=== PATIENT | female | born 1995 | race American Indian/Alaskan Native ===

== ENCOUNTER 2021-01-25 06:42 | Inpatient (IN) | payer MEDICAID ==
[2021-01-25] MEDS ORDERED: Lactated Ringers 1,000 ML IV ONE (07:59)
[2021-01-25] MEDS ORDERED: Lidocaine 1% 30 ML SDV INJECT PRN (07:59)
[2021-01-25] MEDS ORDERED: Misoprostol 400 MCG (4 X 100 MCG TAB) RECTAL PRN (07:59)
[2021-01-25] MEDS ORDERED: Ondansetron 4 MG/2 ML SDV IVPUSH PRN (07:59)
[2021-01-25] MEDS ORDERED: Methylergonovine 0.2 MG/1 ML Amp IM PRN (07:59)
[2021-01-25] MEDS ORDERED: Carboprost Tromethamine 250 MCG/1 ML Amp IM PRN (07:59)
[2021-01-25] MEDS ORDERED: Sodium Chloride 0.9% 10 ML Syringe FLUSH PRN (07:59)
[2021-01-25] MEDS ORDERED: Tranexamic Acid 1,000 MG in Sodium Chloride 0.9% 100 ML IV PRN (07:59)
[2021-01-25] MEDS ORDERED: Oxytocin/Normal Saline 30 UNIT/500 ML BAG IV SCH (08:00)
[2021-01-25] MEDS ORDERED: Nalbuphine 10 MG/1 ML Vial IM ONE (08:02)
[2021-01-25] MEDS: Oxytocin/Normal Saline 30 UNIT/500 ML BAG IV SCH ×2 (08:57→16:52)
[2021-01-25] MEDS: Lactated Ringers 1,000 ML IV SCH ×2 (08:57→10:36)
[2021-01-25] MEDS ORDERED: fentaNYL 100 MCG/2 ML SDV ONE (10:38)
[2021-01-25] MEDS ORDERED: Sodium Bicarbonate 4.2% 2.5 MEQ/5 ML SDV ONE ×2 (10:39→10:40)
[2021-01-25] MEDS ORDERED: fentaNYL 100 MCG/2 ML SDV ITHECAL ONE (10:40)
[2021-01-25] MEDS ORDERED: Sodium Chloride 0.9% 20 ML SDV ONE (10:40)
[2021-01-25] MEDS ORDERED: Phytonadione 1 MG/0.5 ML Syringe IM ONE (11:36)
[2021-01-25] MEDS ORDERED: Erythromycin Base 0.5% Ophth Oint 1 GM Tube EYEBOTH ONE (11:36)
[2021-01-25] MEDS ORDERED: Hepatitis B Virus Vaccine PF (Pediatric) 10 MCG/0.5 ML Syringe IM ONE (11:36)
--- NOTE | 2021-01-25 11:36 | PCM.DEL ---
Vacuum Extractor Progress Note - Alternative Labor Strategies Considered Alternative Labor Strategies Considered:: Reports: Yes Strategies Considered:: Reports: Contraction Intensity Adequate, Position Changes Used to Facilitate Rotation & Descent, Empty Bladder, Rest Indications Considered:: Reports: Yes Indications:: Reports: Suspicion of Immediate or Potential Compromise Time Out:: Reports: Yes - Patient Prepared Patient Prepared:: Reports: Yes Informed Consent:: Reports: Verbal Risks: Reports: Yes Risks Include:: Reports: Laceration, Shoulder Dystocia, Maternal Injury, Other ( harm) Anesthesia/Analgesia Adequate:: Reports: Yes - Probability of Success High Probability of Success:: Reports: Yes Weight Estimated:: Reports: AGA Patient Diabetic:: Reports: No Pelvis Adequate:: Reports: Yes Position:: DAMION Asynclitic:: Reports: No Station:: VTX SEEN SPLITTING LABIA - Application Time Maximum Application Time & Number of Pop-Offs Predetermined:: Reports: Yes Number of Times Cup Disengaged:: 0 (USED FOR 1 CONTRACTION WITH DELIVERY -SEE NURSES NOTES AND DELIVERY NOTE FOR DETAILS ON TIME,ETC) Type of Vacuum Used:: Reports: Cup: Soft (KIWI VACUUM WITH SMALL CUP) Vacuum Extraction: Successful - Exit Strategy Exit strategy available:: Reports: Yes and resuscitation teams readily available:: Reports: Yes - General Info Date of Service: 01/25/21 - Patient Data Vitals - Most Recent: Last Vital Signs Temp 97.5 F 01/25/21 07:13 Pulse 78 01/25/21 07:13 Resp 18 01/25/21 07:13 BP 122/72 01/25/21 07:13 Pulse Ox Weight - Most Recent: 68.039 kg Lab Results Last 24 Hours: Laboratory Results - last 24 hr 01/25/21 01/25/21 Range/Units 07:05 08:18 WBC 12.0 H (5.0-10.0) 10^3/uL RBC 3.92 L (4.2-5.4) 10^6/uL Hgb 13.3 (12.0-16.0) g/dL Hct 38.9 (37.0-47.0) % MCV 99.2 (80-100) fL MCH 33.9 (27.0-34.0) pg MCHC 34.2 (33.0-35.0) g/dL Plt Count 173 (150-450) 10^3/uL SARS-CoV-2 RNA (MAGGY) Negative (NEGATIVE) Med Orders - Current: Current Medications Acetaminophen (Acetaminophen 325 Mg Tab) 650 mg PO Q4H PRN PRN Reason: Pain (Mild 1-3) and fever Carboprost Tromethamine (Carboprost Tromethamine 250 Mcg/1 Ml Amp) 250 mcg IM ASDIRECTED PRN PRN Reason: HEMORRHAGE Lactated Ringer's (Ringers, Lactated) 1,000 mls @ 125 mls/hr IV ASDIRECTED MARYJANE Last Admin: 01/25/21 10:36 Dose: 125 mls/hr Documented by: Tranexamic Acid 1,000 mg/ (Sodium Chloride) 110 mls @ 660 mls/hr IV ONETIME PRN PRN Reason: Bleeding Oxytocin/Sodium Chloride (Pitocin In Ns 30 Unit/500 Ml) 30 unit in 500 mls @ 2 mls/hr IV TITRATE MARYJANE; Protocol Last Titration: 01/25/21 09:40 Dose: 4 munits/min, 4 mls/hr Documented by: Oxytocin/Sodium Chloride (Pitocin In Ns 30 Unit/500 Ml) 30 unit in 500 mls @ 2 mls/hr IV TITRATE MARYJANE; Protocol Lidocaine HCl (Lidocaine 1% 30 Ml Sdv) 30 ml INJECT ASDIRECTED PRN PRN Reason: Perineal Repair Methylergonovine Maleate (Methylergonovine 0.2 Mg/1 Ml Amp) 0.2 mg IM ASDIRECTED PRN PRN Reason: Hemorrhage Misoprostol (Misoprostol 400 Mcg (4 X 100 Mcg Tab)) 800 mcg RECTAL ASDIRECTED PRN PRN Reason: Hemorrhage Last Admin: 01/25/21 11:19 Dose: 800 mcg Documented by: Ondansetron HCl (Ondansetron 4 Mg/2 Ml Sdv) 4 mg IVPUSH Q4H PRN PRN Reason: Nausea/Vomiting Last Admin: 01/25/21 10:35 Dose: 4 mg Documented by: Sodium Chloride (Sodium Chloride 0.9% 10 Ml Syringe) 10 ml FLUSH ASDIRECTED PRN PRN Reason: Keep Vein Open Discontinued Medications Fentanyl (Fentanyl 100 Mcg/2 Ml Sdv) Confirm Administered Dose 100 mcg .ROUTE .STK-MED ONE Stop: 01/25/21 10:39 Lactated Ringer's (Ringers, Lactated) 1,000 mls @ 500 mls/hr IV BOLUS ONE Stop: 01/25/21 09:58 Nalbuphine HCl (Nalbuphine 10 Mg/1 Ml Vial) 20 mg IM ONETIME ONE Stop: 01/25/21 08:03 Sodium Bicarbonate (Sodium Bicarbonate 4.2% 2.5 Meq/5 Ml Sdv) Confirm Administered Dose 2.5 meq .ROUTE .STK-MED ONE Stop: 01/25/21 10:40 Sufentanil Citrate (Sufentanil 50 Mcg/1 Ml Amp) Confirm Administered Dose 50 mcg .ROUTE .STK-MED ONE Stop: 01/25/21 10:40 - Problem List Review Problem List Initiated/Reviewed/Updated: Yes - My Orders Last 24 Hours: My Active Orders 01/25/21 Breakfast Clear Liquid Diet [DIET] 01/25/21 07:59 Acetaminophen [TylenoL] 650 mg PO Q4H PRN Carboprost Tromethamine [Hemabate DS] 250 mcg IM ASDIRECTED PRN Lidocaine 1% [Xylocaine-MPF 1%] 30 ml INJECT ASDIRECTED PRN Methylergonovine [Methergine] 0.2 mg IM ASDIRECTED PRN Ondansetron [Zofran] 4 mg IVPUSH Q4H PRN Sodium Chloride 0.9% [Saline Flush] 10 ml FLUSH ASDIRECTED PRN Tranexamic Acid [Cyklokapron] 1,000 mg Sodium Chloride 0.9% [Normal Saline] 100 ml IV ONETIME miSOPROStoL [Cytotec] 800 mcg RECTAL ASDIRECTED PRN Resuscitation Status Routine 01/25/21 08:00 Patient Status [ADT] Routine Communication Order [RC] ASDIRECTED Heart Tones [RC] PER UNIT ROUTINE Notify Provider Vital Signs OB [RC] ASDIRECTED Notify Provider [RC] PRN Pump Management, Intrathecal [RC] ASDIRECTED Up ad Cait [RC] ASDIRECTED Vital Signs [RC] PER UNIT ROUTINE Lactated Ringers [Ringers, Lactated] 1,000 ml IV ASDIRECTED Oxytocin/Normal Saline [Pitocin in NS 30 UNIT/500 ML] 30 unit in 500 ml IV TITRATE Oxytocin/Normal Saline [Pitocin in NS 30 UNIT/500 ML] 30 unit in 500 ml IV TITRATE Saline Lock Insert [OM.PC] Routine
[2021-01-25] MEDS ORDERED: Zolpidem 5 MG Tab PO PRN (11:39)
[2021-01-25] MEDS ORDERED: Benzocaine/Menthol 20%-0.5% Spray 78 GM Cannister TOP PRN (11:39)
[2021-01-25] MEDS ORDERED: Simethicone 80 MG Tab.Chew PO PRN (11:39)
[2021-01-25] MEDS ORDERED: Oxytocin 10 Units/1 ML SDV IM PRN (11:39)
--- NOTE | 2021-01-25 11:40 | OBOUT ---
DATE: 01/25/2021 TIME: 7:01 to 7:21. REASON FOR NST: 1. Intrauterine at 39-6/7 weeks confirmed with 12-1/7 week ultrasound. 2. Contractions with cervical change. 3. GBS negative. 4. History of cardiac echogenic focus. No further workup done. Seen Maternal Medicine. 5. . NST INTERPRETATION: During this time period, heart tone baseline was approximately 130 and at least two 15 x 15 beats per minute accelerations making this strip reactive as well as reassuring. Tocometer reveals potential 3 to 4 contractions felt by the patient. Blood pressure 122/72, heart rate 78, temperature 97.5. ASSESSMENT: 1. Nonstress test, reactive and reassuring. 2. Tocometer with contractions. PLAN: The patient was evaluated shortly thereafter. She was found to be 3 cm with contractions with cervical change, suspected labor. The patient was admitted. Pitocin augmentation was started after that and the patient will be followed clinically and closely. H and P was done through [facility] and updated to reflect the findings. Review of systems was reviewed and felt to be contributory for contractions. Started at 3 a.m. on date of admission. Increasing in frequency and intensity to the point that she was breathing through them, felt in the lower abdomen, coming every 5 to 10 minutes, and worsening over time. No spotting, bleeding, or leaking noted. Otherwise, please see H and P done through [facility]. [facility] /[id number]
[2021-01-25] MEDS ORDERED: Witch Hazel Medicated Pads 100/Jar TOP PRN (16:50)
[2021-01-25] MEDS: Ibuprofen 800 MG Tab PO PRN (17:05)
--- NOTE | 2021-01-25 19:50 | PN ---
DATE: 01/25/2021 SUBJECTIVE: The patient is breathing through her contractions. OBJECTIVE: heart tones in the 120s, reactive. Tocometer reveals contractions every 2 to 4 to 5 minutes apart. Vaginal exam reveals her to be 6 to 7 cm, 100% effaced, 0 to +1 station, vertex suspected. Last blood pressure 139/79, heart rate 61. ASSESSMENT AND PLAN: Intrauterine , 39-6/7 weeks, confirmed with 12- 1/7 week ultrasound. Admitted in active labor with contractions and cervical change. Pitocin augmentation has been started. She is group B Streptococcus negative in a with history of cardiac and cardiac echogenic focus. Seen Maternal Medicine. No further workup warranted and we will follow after delivery. At this point in time, the patient is requesting something for pain. Intrathecal will be given at her request and we will proceed as soon as C[employer] SERVICE [employer]OCIATE is ready and available. [facility] /[id number]
[2021-01-26] MEDS: Ibuprofen 800 MG Tab PO PRN ×3 (02:00→23:58)
[2021-01-26] MEDS: Docusate Sodium 100 MG Cap PO PRN ×2 (08:31→23:58)
[2021-01-26] MEDS: Prenatal Multivitamin with Calcium/Folic Acid/Iron Tab PO SCH (08:31)
[2021-01-26] MEDS: Acetaminophen 325 MG Tab PO PRN (08:31)
--- NOTE | 2021-01-26 10:43 | DEL ---
DATE: 01/25/2021 PREOPERATIVE DIAGNOSES: 1. Intrauterine 39-6/7 weeks, confirmed with 12-1/7 week ultrasound. 2. Contractions, cervical change, labor. 3. Group B Streptococcus negative. 4. History of cardiac echogenic focus on ultrasound seen in Maternal- Medicine, no further workup elicited or needed. 5. 1, para 0. 6. Recurrent decelerations with bradycardia in the second stage of labor. POSTOPERATIVE DIAGNOSES: 1. Intrauterine 39-6/7 weeks, confirmed with 12-1/7 week ultrasound, delivered. 2. Contractions, cervical change, labor. 3. Group B Streptococcus negative. 4. History of cardiac echogenic focus on ultrasound seen in Maternal- Medicine, no further workup elicited or needed. 5. 1, para 0. 6. Recurrent decelerations with bradycardia in the second stage of labor. 7. Second-degree perineal laceration, repaired. 8. Uterine atony requiring increased dosing of Pitocin and Cytotec 800 mcg rectally. 9. Nuchal cord x1, reduced bluntly with delivery. PROCEDURES PERFORMED: Nonstress test, Pitocin augmentation, subsequent vacuum- assisted vaginally, second-degree perineal laceration, repaired. ANESTHESIA/ANALGESIA: The patient did receive an intrathecal in the first stage of labor. ESTIMATED BLOOD LOSS: 300 mL. FINDINGS: Female. scores and weight pending. Nuchal cord x1, reduced bluntly at delivery. SUMMARY OF EVENTS: The patient is a 25-year-old old 1, para 0, intrauterine at 39-6/7 weeks, admitted with contractions and cervical change with contractions being somewhat spaced out. Pitocin augmentation was started after NST. She rapidly went from 3 to 4 cm to 6 to 7 cm over a 2- to 3- hour period. She subsequently received an intrathecal, and shortly after the intrathecal recurrent decelerations were noted, evaluation done, was found to be an anterior rim. Subsequently, I was called to the room. I donned sterile gown and gloves. She was found to be in the second stage of labor, and she started pushing. Recurrent decelerations were noted. Moore catheter was introduced and drained less than 10 mL of clear-colored urine. This was subsequently removed. Discussion ensued in regard to kiwi vacuum-assisted delivery with recurrent decelerations, slow recovery, and bradycardia suspected. I did discuss with her and her male partner the risks, benefits, alternatives, complications of this. They understood and agreed and wished to proceed. Verbal consent was obtained. With the next episode of pushing with contractions, vertex was seen splitting the labia. The kiwi with small cup was applied pumped up to the green, and with gentle pulling pressure, not exceeding the red pulling pressure marker, further descent was noted and vertex was delivered in DAMION presentation. The vacuum was disengaged. Nuchal cord x1 was noted and reduced bluntly at delivery. The rest of the infant delivered without difficulty. Mouth and nares were suctioned. Cord was doubly clamped and cut, and the was brought to the team. Then, approximately 10 mL of cord blood was obtained for labs. The placenta was then delivered gently with cord traction and fundal massage within 5 to 10 minutes. Uterine atony was noted at that time. Fundal massage ensued. Increased Pitocin to 999 per hour was started and 800 mcg Cytotec was given rectally. The perineum, vagina, and perirectal areas were then examined and noted to have a second-degree perineal laceration. There was bleeding, and this was subsequently repaired in the usual fashion using 3-0 Vicryl with good anesthetic result from the intrathecal. Bleeding slowed thereafter with the above interventions. Mother and infant are currently stable at the time of dictation. [facility] /[id number]
--- NOTE | 2021-01-26 11:07 | PN ---
DATE: 01/26/2021 day #1, status post vacuum-assisted vaginal delivery with second- degree perineal laceration, repaired. SUBJECTIVE: The patient is tolerating p.o., was ambulating, urinating, passing flatus. States her bleeding is under control. OBJECTIVE: Vital Signs: Temperature 97.1, heart rate 67, blood pressure 118/66, respiratory rate 16. Lungs: Clear to auscultation bilaterally. Heart: S1, S2. Regular rate and rhythm. Abdomen: Firm uterus around the umbilicus. Extremities: No peripheral edema. No calf pain. LABORATORY DATA: Pending is a CBC. ASSESSMENT: 1. day #1, status post vacuum-assisted vaginal delivery with second- degree perineal laceration, repaired. 2. Uterine atony requiring increasing Pitocin and Cytotec 800 mcg rectally. PLAN: We will await CBC. The patient is currently asymptomatic in regard to anemia. Vital signs are stable. Continue to follow clinically and closely. [facility] /[id number]
[2021-01-27] MEDS: Acetaminophen 325 MG Tab PO PRN (03:08)
[2021-01-27] MEDS: Docusate Sodium 100 MG Cap PO PRN (08:49)
[2021-01-27] MEDS: Prenatal Multivitamin with Calcium/Folic Acid/Iron Tab PO SCH (08:49)
[2021-01-27] MEDS: Ibuprofen 800 MG Tab PO PRN (08:49)
--- NOTE | 2021-01-27 10:23 | DISCH ---
ADMITTING DIAGNOSES: 1. Intrauterine at 39-6/7th weeks, confirmed with 12-6/7 week's ultrasound. 2. Contractions with cervical change, labor. 3. Group B Streptococcus negative. 4. History of cardiac echogenic focus on ultrasound. seen Maternal- Medicine, no further workup needed. 5. 1, para 0. DISCHARGE DIAGNOSES: 1. Intrauterine at 39-6/7th weeks, confirmed with 12-6/7 week's ultrasound, delivered. 2. Contractions with cervical change, labor. 3. Group B Streptococcus negative. 4. History of cardiac echogenic focus on ultrasound. seen Maternal- Medicine, no further workup needed. 5. 1, para 0. 6. Recurrent decelerations with bradycardia requiring vacuum-assisted vaginal delivery. 7. Second-degree perineal laceration, repaired. 8. Uterine atony requiring increasing doses of Pitocin and Cytotec 800 mcg rectally. 9. Nuchal cord x1 reduced bluntly at delivery. PROCEDURES PERFORMED: Nonstress test, Pitocin augmentation, vacuum-assisted vaginal, and second-degree perineal laceration repaired per Dr. Lanza. HISTORY OF PRESENT ILLNESS: Please see H and P. SUMMARY OF HOSPITAL COURSE: The patient was admitted on the above date with above diagnosis, underwent the above procedures, then went on to deliver a female scores 8 and 9, weighing 7 pounds 1 ounces (3200 g), nuchal cord x1 was noted and reduced bluntly at delivery with vacuum-assisted vaginal delivery due to concerns, with second-degree perineal laceration, repaired. day #1, date of discharge, the patient was tolerating p.o., ambulating, urinating, passing flatus, and requesting discharge. PHYSICAL EXAMINATION: Vital Signs: Last set of vitals; temp 98.1, heart rate 74, blood pressure 122/75, and respiratory rate 14. Lungs: Clear to auscultation bilaterally. Heart: S1 and S2. Regular rate and rhythm. Abdomen: Firm uterus at the umbilicus. Extremities: No peripheral edema. No calf pain. LABORATORY DATA: Predelivery hemoglobin 13.2 and postdelivery hemoglobin 13.2. Platelets 173 and then 152. CONDITION ON DISCHARGE COMPARED TO CONDITION ON ADMISSION: Much improved. DISCHARGE INSTRUCTION: 1. Diet. As tolerated. 2. Activity: No lifting more than 20 pounds. No sit-ups or straining. Pelvic rest for the next 6 weeks with immediate return to fertility discussed with the patient. 3. Reason to return or go to the emergency room were discussed with the patient including, but not limited to temperature greater than 100.4, foul- smelling discharge, red or tender breasts, or increased vaginal bleeding, or severe headaches, visual changes, or upper abdominal pain. DISCHARGE MEDICATIONS: 1. [id number] ibuprofen for pain. 2. vitamins while breast feeding. FOLLOWUP: 6 weeks . Follow up with her baby on 01/31/2021. I did discuss with the patient in the interim reasons to return or go to the emergency room in regard to her infant, she understands and agrees. Importance of followup and ramifications of not doing so discussed as well. [facility] /[id number] MIGUEL
== END 2021-01-27 14:00 | disposition home or self-care (01) | DRG 807 ==
LOC: DL.OB 06:42 → OBSVTOIN 11:14 → DL.MS 01-26 23:10
PROVIDERS: ADMIT Family Medicine; ATTEND Family Medicine
PROC: 10D07Z6 Extraction of Products of Conception, Vacuum, Via Natural or Artificial Opening (ICD-10-PCS; principal; 2021-01-25)
PROC: 0KQM0ZZ Repair Perineum Muscle, Open Approach (ICD-10-PCS; 2021-01-25)
DX: O76 Abnormality in fetal heart rate and rhythm complicating labor and delivery (principal); Z37.0 Single live birth; O70.1 Second degree perineal laceration during delivery; O62.2 Other uterine inertia; Z3A.39 39 weeks gestation of pregnancy; O69.81X0 Labor and delivery complicated by cord around neck, without compression, not applicable or unspecified; Z20.822 Contact with and (suspected) exposure to COVID-19
CPT/HCPCS: 36415; 59409; 85027; A9270-GY; J2405; J2590; J3010; J7120; U0002

== ENCOUNTER 2025-05-11 07:57 | Inpatient (IN) | payer BC, MEDICAID ==
[2025-05-11] MEDS ORDERED: Lactated Ringers 1,000 ML IV ONE (08:00)
[2025-05-11] MEDS ORDERED: Sodium Chloride 0.9% 10 ML Syringe FLUSH PRN ×2 (08:00→14:23)
[2025-05-11] MEDS ORDERED: Carboprost Tromethamine 250 MCG/1 mL Vial IM PRN (08:00)
[2025-05-11] MEDS ORDERED: Oxytocin/Lactated Ringers 30 UNIT/500 ML BAG IV SCH (08:00)
[2025-05-11 08:25] LABS: PLATELET COUNT,PLT 181.0 10^3/uL (150-450); RED BLOOD CELL COUNT 3.73 10^6/uL (4.2-5.4); WHITE BLOOD CELL COUNT,WBC 9.0 10^3/uL (5.0-10.0)
[2025-05-11] MEDS: Lactated Ringers 1,000 ML IV SCH (10:17)
[2025-05-11] MEDS: Oxytocin/Normal Saline 30 UNIT/500 ML BAG IV SCH (10:17)
[2025-05-11] MEDS ORDERED: ePHEDrine 50 MG/ML SDV IVPUSH PRN (12:52)
[2025-05-11] MEDS ORDERED: Ropivacaine 200 MG in Premix Bag 1 BAG EPIDUR SCH (13:00)
[2025-05-11] MEDS ORDERED: fentaNYL 100 MCG/2 ML SDV ONE (13:05)
[2025-05-11] MEDS ORDERED: Oxytocin 10 Units/1 ML SDV IM PRN (14:23)
[2025-05-11] MEDS: Benzocaine/Menthol 20%-0.5% Spray 78 GM Cannister TOP PRN (14:45)
[2025-05-11] MEDS: Witch Hazel Medicated Pads 100/Jar TOP PRN (14:53)
[2025-05-11] MEDS: Ondansetron 4 MG/2 ML SDV IVPUSH PRN (15:02)
[2025-05-12 06:26] LABS: PLATELET COUNT,PLT 175.0 10^3/uL (150-450); RED BLOOD CELL COUNT 3.37 10^6/uL (4.2-5.4); WHITE BLOOD CELL COUNT,WBC 11.6 10^3/uL (5.0-10.0)
[2025-05-12] MEDS: Prenatal Multivitamin with Calcium/Folic Acid/Iron Tab PO SCH (09:54)
[2025-05-12] MEDS: Measles, Mumps & Rubella Vaccine 0.5 ML SDV SUBCUT ONE (09:55)
== END 2025-05-12 16:55 | disposition home or self-care (01) | DRG 807 ==
LOC: DL.OB 07:57 → OBSVTOIN 14:11
PROVIDERS: ADMIT Family Medicine; ATTEND Family Medicine
PROC: 10E0XZZ Delivery of Products of Conception, External Approach (ICD-10-PCS; principal; 2025-05-11)
PROC: 10907ZC Drainage of Amniotic Fluid, Therapeutic from Products of Conception, Via Natural or Artificial Opening (ICD-10-PCS; 2025-05-11)
PROC: 3E033VJ Introduction of Other Hormone into Peripheral Vein, Percutaneous Approach (ICD-10-PCS; 2025-05-11)
PROC: 3E0R3BZ Introduction of Anesthetic Agent into Spinal Canal, Percutaneous Approach (ICD-10-PCS; 2025-05-11)
PROC: 00HU33Z Insertion of Infusion Device into Spinal Canal, Percutaneous Approach (ICD-10-PCS; 2025-05-11)
DX: O64.0XX0 Obstructed labor due to incomplete rotation of fetal head, not applicable or unspecified (principal); Z37.0 Single live birth; Z3A.39 39 weeks gestation of pregnancy; O99.814 Abnormal glucose complicating childbirth; E74.39 Other disorders of intestinal carbohydrate absorption
CPT/HCPCS: 01967; 36415; 59025; 59409; 85027; 90471; 90707; A9270-GY; J2405; J2590; J7120